=== PATIENT | male | born 1960 | race Caucasian/White ===

== ENCOUNTER → 2017-07-28 | Outpatient (CLI) | payer MEDICARE ==
--- NOTE | 2017-07-28 21:59 | MR ---
EXAMINATION TYPE: MR knee LT wo con DATE OF EXAM: 07/28/2017 COMPARISON: NONE HISTORY: Left knee pain and swelling x8 weeks per patient. Other internal derangements, other instabi lity, and sprain all per prescription. TECHNIQUE: Multiplanar, multisequence images of the knee is performed without IV contrast. FINDINGS: MEDIAL MENISCUS: Anterior horn is intact without tear. There is oblique increased signal posterior ho rn of medial meniscus does not extend to articular surface seen on sagittal image 22. LATERAL MENISCUS: Anterior and posterior horns are intact without tear. CRUCIATE LIGAMENTS: The anterior and posterior cruciate ligaments are intact and unremarkable. COLLATERAL LIGAMENTS: The medial collateral ligament and lateral collateral ligament complex are inta ct and unremarkable. EXTENSOR MECHANISM: Visualized quadriceps and patellar tendons are intact. EFFUSION: No significant suprapatellar joint effusion. POPLITEAL CYST: No popliteal/heath cyst. TRICOMPARTMENT SPACES: There is mild tricompartment joint space loss is prominent patellofemoral comp artment where fairly moderate joint space loss is seen. There is mild spurring medial and lateral ti biofemoral compartments. CARTILAGE: There is thinning of articular cartilage on posterior patellar pole without full-thickness cartilaginous loss seen most prominent inferiorly. BONE MARROW SIGNAL: No focal abnormal marrow signal is appreciated. OTHER: No additional significant abnormality is appreciated. IMPRESSION: 1. Intrasubstance tear posterior horn of medial meniscus. No full-thickness meniscal or ligamentous t ear is seen. 2. 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
== END | disposition home or self-care (01) ==
LOC: RADMRIMAIN 20:48
PROVIDERS: ATTEND Family Medicine
DX: S83.242A Other tear of medial meniscus, current injury, left knee, initial encounter (principal); M22.42 Chondromalacia patellae, left knee; M25.862 Other specified joint disorders, left knee

== ENCOUNTER → 2018-04-30 | Outpatient (CLI) | payer MEDICARE ==
--- NOTE | 2018-04-30 16:56 | MR ---
EXAMINATION TYPE: MR shoulder LT wo con DATE OF EXAM: 04/30/2018 1:23 PM COMPARISON: NONE HISTORY: Left shoulder pain x 4 years TECHNIQUE: Multiplanar multispin echo imaging of the left shoulder was performed. FINDINGS: Rotator cuff : Moderate thickening and heterogeneity of the supraspinatus tendon compatible chronic t endinopathy. No evidence for partial or complete tear. Bursa: No bursal effusion or thickening is see n. Musculature: There is no muscular tear, contusion, or atrophy. Acromioclavicular joint : There are mild degenerative changes of the acromioclavicular joint. There is no anterior or lateral acromial downsloping. Osseous structures : There are no fractures or regions of abnormal bone marrow signal intensity. Long biceps tendon : The biceps tendon is normally situated within the bicipital groove. No complete or partial biceps tendon tear is present. Glenohumeral Joint fluid : There is no glenohumeral joint effusion. Cartilage and Bone : No focal hyaline cartilage defects are noted. No Hill-Sachs, reverse Hill-Sachs, or bony Bankart lesions are seen. Labrum : There are no SLAP or soft tissue Bankart lesions. No paralabral cysts are seen. OTHER FINDINGS : none IMPRESSION: 1. Tiny tendinopathy supraspinatus tendon.
== END | disposition home or self-care (01) ==
LOC: RADMRIMAIN 12:50
PROVIDERS: ATTEND Family Medicine
DX: S46.012D Strain of muscle(s) and tendon(s) of the rotator cuff of left shoulder, subsequent encounter (principal)

== ENCOUNTER → 2020-05-27 | Outpatient (CLI) | payer MEDICARE ==
[2020-05-27 21:35] LABS: Albumin 4.9 g/dL (3.80-4.90)
[2020-05-27 21:42] LABS: Prolactin 4.7 ng/mL (2.1-17.7)
[2020-05-27 21:43] LABS: Estradiol 22.7 pg/mL; Follicle Stimulating Hormone 6.7 mIU/mL
[2020-05-30 15:00] LABS: Albumin, LC/MS/MS 4.6 g/dL (3.6-5.1); Testosterone, Free, LC/MS/MS 20.7 pg/mL (46.0-224.0); Testosterone, Total, LC/MS/MS 152 ng/dL (250-1100)
== END | disposition home or self-care (01) ==
LOC: LABWHC1 12:49
PROVIDERS: ATTEND Urology
DX: C61 Malignant neoplasm of prostate (principal); N52.01 Erectile dysfunction due to arterial insufficiency
CPT/HCPCS: 36415; 82040; 82670; 82947; 83001; 83002; 84146; 84153; 84270; 84403; 84436; 84443; 84479

== ENCOUNTER 2021-05-27 08:56 | Day surgery (SDC) | payer MEDICARE ==
[2021-05-23 08:49] VITALS: BMI 30.4
[2021-05-27 09:22] VITALS: TEMP 98.1
[2021-05-27] MEDS: LACTATED RINGERS 1,000 ML IV SCH ×2 (09:30→09:40)
[2021-05-27] MEDS ORDERED: LIDOCAINE 1% INJ 10MG/ML (20 ML MDV) ONE (09:41)
[2021-05-27] MEDS ORDERED: PROPOFOL 10 MG/ML 20 ML VIAL IV ONE (09:41)
--- NOTE | 2021-05-27 10:05 | P.PCN ---
Date of Procedure: 05/27/21 Description of Procedure: BRIEF HISTORY: Patient is a 60-year-old male presenting for outpatient colonoscopy for screening for malignant neoplasm of the colon. His last colonoscopy was 8 years ago. No change in bowel habits, blood per rectum. No family history of colon cancer. PROCEDURE PERFORMED: Colonoscopy with polypectomy. PREOPERATIVE DIAGNOSIS: Screening for malignant neoplasm of the colon, last colonoscopy 8 years ago. ESTIMATED BLOOD LOSS: Minimal. IV sedation per Anesthesia. PROCEDURE: After informed consent was obtained, the patient, was brought into the endoscopy unit. IV sedation was administered by Anesthesia under continuous monitoring. Digital rectal examination was normal. Initially the Olympus CF-190 flexible video colonoscope was then inserted in the rectum, gradually advanced into the cecum without any difficulty. Careful examination was performed as the scope was gradually being withdrawn. Ileocecal valve and the appendiceal orifice were visualized and appeared normal. Prep was excellent. Mucosa of the cecum, ascending colon, transverse colon, descending colon, sigmoid colon, and rectum appeared normal. Diminutive polyps measuring 1-2 mm in size removed from the cecum, transverse colon, descending colon and sigmoid colon with cold forcep cesilia ypectomy. Retroflexion was performed in the rectum and no lesions were seen, low-grade internal hemorrhoids seen. The patient tolerated the procedure well. IMPRESSION: 4 diminutive polyps removed from the cecum, transverse colon, descending colon and sigmoid colon with cold forcep polypectomy. Internal hemorrhoids. RECOMMENDATIONS: Findings of this examination were discussed with the patient and his family. Okay to resume diet. Okay to resume medications. Await pathology from polypectomies. Recommend repeat colonoscopy in 5 years for colon polyps pending pathology from polypectomies.
[2021-05-27 10:08] VITALS: RESP 16
[2021-05-27 10:31] VITALS: BP 150/90; PULSE 60
== END 2021-05-27 10:42 | disposition home or self-care (01) ==
LOC: ORWHC2ENDO 08:56
PROVIDERS: ATTEND Internal Medicine
DX: Z12.11 Encounter for screening for malignant neoplasm of colon (principal); D12.0 Benign neoplasm of cecum; D12.3 Benign neoplasm of transverse colon; D12.4 Benign neoplasm of descending colon; K63.4 Enteroptosis; F32.9 Major depressive disorder, single episode, unspecified; Z98.890 Other specified postprocedural states; Z79.891 Long term (current) use of opiate analgesic; Z79.899 Other long term (current) drug therapy; K64.8 Other hemorrhoids
CPT/HCPCS: 88305; 45380; J2001; J2704